=== PATIENT | female | born 1995 | race Two or more races ===

== ENCOUNTER 2019-03-03 03:46 | Observation (INO) | payer MEDICAID, OTHER ==
[2019-03-03] MEDS ORDERED: Sodium Chloride 0.9% 1,000 ML IV ONE (03:49)
[2019-03-03] MEDS ORDERED: Ondansetron 4 MG/2 ML SDV IVPUSH ONE (03:50)
--- NOTE | 2019-03-03 03:56 | EDM.PDOC ---
ED HPI GENERAL MEDICAL PROBLEM - General Chief Complaint: Abdominal Pain Stated Complaint: SEVERE ABDOMINAL PAIN, BLOATING Time Seen by Provider: 03/03/19 03:49 - History of Present Illness INITIAL COMMENTS - FREE TEXT/NARRATIVE: HISTORY AND PHYSICAL: History of present illness: Patient's 23-year-old female with history of gastritis who presents with a concern of abdominal pain nausea and vomiting she also is being evaluated for gallbladder was told that she has a hyperfunctioning gallbladder and had an ejection fraction of approximately 95%. There is no fever chills she denies no urinary symptoms no chest pain shortness breath or other complaints Review of systems: As per history of present illness and below otherwise all systems reviewed and negative. Past medical history: As per history of present illness and as reviewed below otherwise noncontributory. Surgical history: As per history of present illness and as reviewed below otherwise noncontributory. Social history: No reported history of drug or alcohol abuse. Family history: As per history of present illness and as reviewed below otherwise noncontributory. Physical exam: HEENT: Atraumatic, normocephalic, pupils reactive, negative for conjunctival pallor or scleral icterus, mucous membranes dry, throat clear, neck supple, nontender, trachea midline. Lungs: Clear to auscultation, breath sounds equal bilaterally, chest nontender. Heart: S1S2, regular, negative for clicks, rubs, or JVD. Abdomen: Soft, nondistended, nontender. Negative for masses or hepatosplenomegaly. Negative for costovertebral tenderness. Pelvis: Stable nontender. Genitourinary: Deferred. Rectal: Deferred. Extremities: Atraumatic, negative for cords or calf pain. Neurovascular unremarkable. Neuro: Awake, alert, oriented. Cranial nerves II through XII unremarkable. Cerebellum unremarkable. Motor and sensory unremarkable throughout. Exam nonfocal. Diagnostics: CBC CMP lipase UA hCG acute abdominal series with chest x-ray Therapeutics: Saline 1 L bolus Zofran 4 mg IV Impression: #1 abdominal pain #2 vomiting #3 history of gastritis Definitive disposition and diagnosis as appropriate pending reevaluation and review of above. - Related Data Allergies Allergy/AdvReac Type Severity Reaction Status Date / Time No Known Allergies Allergy Verified 03/03/19 03:57 Home Meds: Home Meds Escitalopram Oxalate [Lexapro] 25 mg PO DAILY 12/26/18 [History] Lisdexamfetamine Dimesylate [Vyvanse] 50 mg PO DAILY 12/26/18 [History] buPROPion HCl [Wellbutrin Xl] 300 mg PO DAILY 12/26/18 [History] Sucralfate 1 gm PO QIDACANDBED 30 Days #120 tablet 01/11/19 [Rx] Ampicillin [Principen] 0 mg PO QID 03/03/19 [History] metroNIDAZOLE [Metronidazole] 0 mg PO QID 03/03/19 [History] Past Medical History HEENT History: Reports: Other (See Below) Other HEENT History: wears glasses Cardiovascular History: Reports: None Respiratory History: Reports: Asthma Gastrointestinal History: Reports: None Genitourinary History: Reports: None 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 Musculoskeletal History: Reports: None Neurological History: Reports: None Psychiatric History: Reports: Anxiety, Depression Endocrine/Metabolic History: Reports: None Hematologic History: Reports: Anemia Immunologic History: Reports: None Oncologic (Cancer) History: Reports: None Dermatologic History: Reports: None - Infectious Disease History Infectious Disease History: Reports: Chicken Pox - Past Surgical History Head Surgeries/Procedures: Reports: None HEENT Surgical History: Reports: Naso-Sinus Surgery, Tonsillectomy ED ROS GENERAL - Review of Systems Review Of Systems: Comprehensive ROS is negative, except as noted in HPI. ED EXAM, GENERAL - Physical Exam Exam: See Below (See dictation) Course - Vital Signs Last Recorded V/S: Last Vital Signs Temp 36.2 C 03/03/19 06:21 Pulse 61 03/03/19 06:21 Resp 18 03/03/19 06:21 BP 123/82 03/03/19 06:21 Pulse Ox 98 03/03/19 06:21 - Orders/Labs/Meds Orders: Active Orders 24 hr Category Date Time Status CULTURE URINE [RM] Stat Lab 03/03/19 04:00 Received Labs: Laboratory Tests 03/03/19 03/03/19 03/03/19 Range/Units 03:58 03:58 03:58 WBC 6.11 (4.0-11.0) K/uL RBC 4.44 (4.30-5.90) M/uL Hgb 11.1 L (12.0-16.0) g/dL Hct 34.7 L (36.0-46.0) % MCV 78.2 L (80.0-98.0) fL MCH 25.0 L (27.0-32.0) pg MCHC 32.0 (31.0-37.0) g/dL RDW Std Deviation 46.7 (28.0-62.0) fl RDW Coeff of Karolina 16 H (11.0-15.0) % Plt Count 351 (150-400) K/uL MPV 10.30 (7.40-12.00) fL Neut % (Auto) 63.8 (48.0-80.0) % Lymph % (Auto) 24.1 (16.0-40.0) % [place] % (Auto) 8.0 (0.0-15.0) % Eos % (Auto) 3.4 (0.0-7.0) % Baso % (Auto) 0.7 (0.0-1.5) % Neut # (Auto) 3.9 (1.4-5.7) K/uL Lymph # (Auto) 1.5 (0.6-2.4) K/uL [place] # (Auto) 0.5 (0.0-0.8) K/uL Eos # (Auto) 0.2 (0.0-0.7) K/uL Baso # (Auto) 0.0 (0.0-0.1) K/uL Nucleated RBC % 0.0 /100WBC Nucleated RBCs # 0 K/uL Sodium 138 (136-145) mmol/L Potassium 3.1 L (3.5-5.1) mmol/L Chloride 100 (98-107) mmol/L Carbon Dioxide 27.5 (21.0-32.0) mmol/L BUN 13 (7.0-18.0) mg/dL Creatinine 0.7 (0.6-1.0) mg/dL Est Cr Clr Drug Dosing 110.55 mL/min Estimated GFR (MDRD) > 60.0 ml/min Glucose 111 H (74-106) mg/dL Calcium 8.8 (8.5-10.1) mg/dL Total Bilirubin 1.3 H (0.2-1.0) mg/dL AST 901 H (15-37) IU/L ALT 1554 H (14-63) IU/L Alkaline Phosphatase 213 H (46-116) U/L Total Protein 7.9 (6.4-8.2) g/dL Albumin 4.1 (3.4-5.0) g/dL Globulin 3.8 (2.6-4.0) g/dL Albumin/Globulin Ratio 1.1 (0.9-1.6) Lipase 74 (73-393) U/L HCG, Qual NEGATIVE (NEG) Urine Color Urine Appearance Urine pH (5.0-8.0) Ur Specific [place] (1.001-1.035) Urine Protein (NEGATIVE) mg/dL Urine Glucose (UA) (NEGATIVE) mg/dL Urine Ketones (NEGATIVE) mg/dL Urine Occult Blood (NEGATIVE) Urine Nitrite (NEGATIVE) Urine Bilirubin (NEGATIVE) Urine Urobilinogen (<2.0) EU/dL Ur Leukocyte Esterase (NEGATIVE) Urine RBC (0-2/HPF) Urine WBC (0-5/HPF) Ur Epithelial Cells (NONE-FEW) Urine Bacteria (NEGATIVE) Urine Mucus (NONE-MOD) 03/03/19 Range/Units 04:00 WBC (4.0-11.0) K/uL RBC (4.30-5.90) M/uL Hgb (12.0-16.0) g/dL Hct (36.0-46.0) % MCV (80.0-98.0) fL MCH (27.0-32.0) pg MCHC (31.0-37.0) g/dL RDW Std Deviation (28.0-62.0) fl RDW Coeff of Karolina (11.0-15.0) % Plt Count (150-400) K/uL MPV (7.40-12.00) fL Neut % (Auto) (48.0-80.0) % Lymph % (Auto) (16.0-40.0) % [place] % (Auto) (0.0-15.0) % Eos % (Auto) (0.0-7.0) % Baso % (Auto) (0.0-1.5) % Neut # (Auto) (1.4-5.7) K/uL Lymph # (Auto) (0.6-2.4) K/uL [place] # (Auto) (0.0-0.8) K/uL Eos # (Auto) (0.0-0.7) K/uL Baso # (Auto) (0.0-0.1) K/uL Nucleated RBC % /100WBC Nucleated RBCs # K/uL Sodium (136-145) mmol/L Potassium (3.5-5.1) mmol/L Chloride (98-107) mmol/L Carbon Dioxide (21.0-32.0) mmol/L BUN (7.0-18.0) mg/dL Creatinine (0.6-1.0) mg/dL Est Cr Clr Drug Dosing mL/min Estimated GFR (MDRD) ml/min Glucose (74-106) mg/dL Calcium (8.5-10.1) mg/dL Total Bilirubin (0.2-1.0) mg/dL AST (15-37) IU/L ALT (14-63) IU/L Alkaline Phosphatase (46-116) U/L Total Protein (6.4-8.2) g/dL Albumin (3.4-5.0) g/dL Globulin (2.6-4.0) g/dL Albumin/Globulin Ratio (0.9-1.6) Lipase (73-393) U/L HCG, Qual (NEG) Urine Color DARK YELLOW Urine Appearance SLT CLOUDY Urine pH 8.5 H (5.0-8.0) Ur Specific [place] 1.015 (1.001-1.035) Urine Protein 30 H (NEGATIVE) mg/dL Urine Glucose (UA) NEGATIVE (NEGATIVE) mg/dL Urine Ketones NEGATIVE (NEGATIVE) mg/dL Urine Occult Blood LARGE H (NEGATIVE) Urine Nitrite NEGATIVE (NEGATIVE) Urine Bilirubin MODERATE H (NEGATIVE) Urine Urobilinogen 2.0 H (<2.0) EU/dL Ur Leukocyte Esterase TRACE H (NEGATIVE) Urine RBC 52-60 (0-2/HPF) Urine WBC 2-5 (0-5/HPF) Ur Epithelial Cells RARE (NONE-FEW) Urine Bacteria FEW (NEGATIVE) Urine Mucus LIGHT (NONE-MOD) Meds: Medications Discontinued Medications Generic Name Dose Route Start Last Admin Trade Name Freq PRN Reason Stop Dose Admin Sodium Chloride 1,000 mls @ 999 mls/hr 03/03/19 03:49 03/03/19 04:00 Normal Saline IV 03/03/19 04:49 999 mls/hr STAT ONE Administration Ketorolac Tromethamine 30 mg 03/03/19 05:43 03/03/19 05:48 Toradol IVPUSH 03/03/19 05:44 30 mg ONETIME ONE Administration Ondansetron HCl 4 mg 03/03/19 03:50 03/03/19 04:01 Zofran IVPUSH 03/03/19 03:51 4 mg ONETIME ONE Administration Departure - Departure Time of Disposition: 08:17 Disposition: Refer to Observation Condition: Good Clinical Impression: Abdominal pain, Elevated liver function tests - Discharge Information Forms: ED Department Discharge - My Orders Last 24 Hours: My Active Orders 03/03/19 04:00 CULTURE URINE [RM] Stat - Assessment/Plan Last 24 Hours: My Active Orders 03/03/19 04:00 CULTURE URINE [RM] Stat
[2019-03-03 04:35] LABS: BLOOD UREA NITROGEN,BUN 13 mg/dL (7.0-18.0); CARBON DIOXIDE,CO2 27.5 mmol/L (21.0-32.0); CHLORIDE,CL 100 mmol/L (98-107); GLUCOSE RANDOM 111 mg/dL (74-106); LIPASE 74 U/L (73-393); POTASSIUM,K 3.1 mmol/L (3.5-5.1); SODIUM,NA 138 mmol/L (136-145)
--- NOTE | 2019-03-03 05:05 | CR ---
Indication: Abdominal pain Technique: Frontal view chest and KUB 2 view Comparison: None Findings/Impression: : Soft tissues: No suspicious calcifications to suggest kidney or ureteral stones. No sign of free air. No sign of soft tissue mass. Bowel: Large amount of feces in the colon. Correlate with symptoms of constipation. Bones: Unremarkable for age. Dictated by Lee Ann Will MD @ Mar 03 2019 5:03AM Signed by Dr. Lee Ann Will @ Mar 03 2019 5:03AM
[2019-03-03] MEDS ORDERED: Ketorolac 30 MG/ML SDV IVPUSH ONE (05:43)
--- NOTE | 2019-03-03 07:17 | US ---
INDICATION: Epigastric abdominal pain. Nausea and vomiting. TECHNIQUE: Right upper quadrant ultrasound. COMPARISON: December 26, 2018. FINDINGS: Again noted is a distended gallbladder without stones. The extrahepatic common bile duct is dilated measuring up to 14 mm previously 7 mm. There appear to be a few dilated intrahepatic ducts. Reportedly there is a positive sonographic March`s sign. Clinical and laboratory correlation are recommended. Acalculous cholecystitis could not be excluded. Consider a HIDA scan for further evaluation. No intrahepatic mass. The right kidney is negative for obstruction. It measures 10.7 cm in length. The visualized pancreas is unremarkable. No right upper quadrant ascites. IMPRESSION: 1. Dilated extrahepatic common bile duct up to 14 mm previously 7 mm. Few intrahepatic biliary ducts appear dilated. 2. Mildly distended gallbladder without stones or sludge. Reportedly there is a true sonographic March`s sign. Clinical and laboratory correlation recommended. Acalculous cholecystitis could not be excluded. Consider a HIDA scan for further evaluation. Dictated by Chester Vyas MD @ Mar 03 2019 7:00AM Signed by Dr. Chester Vyas @ Mar 03 2019 7:16AM
[2019-03-03] MEDS ORDERED: Ondansetron 4 MG/2 ML SDV IVPUSH PRN (08:20)
[2019-03-03] MEDS ORDERED: Lactated Ringers 1,000 ML IV SCH (08:30)
[2019-03-03] MEDS ORDERED: Ketorolac 15 MG/ML SDV IVPUSH PRN (09:26)
--- NOTE | 2019-03-03 09:32 | PCM.HP.2 ---
H&P History of Present Illness - General Date of Service: 03/03/19 Admit Problem/Dx: Admission Diagnosis/Problem Admission Diagnosis/Problem Right upper quadrant pain Source of Information: Patient History Limitations: Reports: No Limitations - History of Present Illness Initial Comments - Free Text/Narative: Patient is a 23-year-old female presented to the emergency room today with a 4 day history of epigastric and right upper quadrant pain as well as pain into the back. This has been associated with nausea and vomiting but no fever or chills. No change in bowel habits. She does note fatty food intolerance. Of note too is that she was treated for Helicobacter pylori related gastritis in December of this year. She also underwent biliary tract workup including both ultrasound and hepatobiliary imaging. She was found to have a 95% ejection fraction. No stones were noted on ultrasound. Symptom Onset Date: 02/28/19 Duration of Symptoms: Reports: Day(s):, Chronic Location: Reports: Abdomen Quality: Reports: Ache, Pressure, Same as Previous Episode Severity: Moderate Improves with: Reports: Rest Worsens with: Reports: Eating, Movement Context: Reports: Sick Contact Associated Symptoms: Reports: Loss of Appetite, Nausea/Vomiting. Denies: Fever/ Chills abdomen Pain Score (Numeric/FACES): 5 - Related Data Allergies/Adverse Reactions: Allergies Allergy/AdvReac Type Severity Reaction Status Date / Time No Known Allergies Allergy Verified 03/03/19 03:57 Home Medications: Home Meds Escitalopram Oxalate [Lexapro] 25 mg PO DAILY 12/26/18 [History] Lisdexamfetamine Dimesylate [Vyvanse] 50 mg PO DAILY 12/26/18 [History] buPROPion HCl [Wellbutrin Xl] 300 mg PO DAILY 12/26/18 [History] Sucralfate 1 gm PO QIDACANDBED 30 Days #120 tablet 01/11/19 [Rx] Ampicillin [Principen] 0 mg PO QID 03/03/19 [History] metroNIDAZOLE [Metronidazole] 0 mg PO QID 03/03/19 [History] Past Medical History HEENT History: Reports: Other (See Below) Other HEENT History: wears glasses Cardiovascular History: Reports: None Respiratory History: Reports: Asthma Gastrointestinal History: Reports: None Genitourinary History: Reports: None 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 Musculoskeletal History: Reports: None Neurological History: Reports: None Psychiatric History: Reports: Anxiety, Depression Endocrine/Metabolic History: Reports: None Hematologic History: Reports: Anemia Immunologic History: Reports: None Oncologic (Cancer) History: Reports: None Dermatologic History: Reports: None - Infectious Disease History Infectious Disease History: Reports: Chicken Pox - Past Surgical History Head Surgeries/Procedures: Reports: None HEENT Surgical History: Reports: Naso-Sinus Surgery, Tonsillectomy Social & Family History - Family History Family Medical History: Noncontributory - Tobacco Use Smoking Status *Q: Never Smoker - Recreational Drug Use Recreational Drug Use: No H&P Review of Systems - Review of Systems: Review Of Systems: See Below General: Reports: Decreased Appetite. Denies: Fever, Chills, Diaphoresis HEENT: Reports: No Symptoms Pulmonary: Denies: Shortness of Breath, Wheezing Cardiovascular: Denies: Chest Pain, Palpitations Gastrointestinal: Reports: Abdominal Pain, Anorexia, Decreased Appetite, Nausea , Vomiting. Denies: Black Stool, Bloody Stool, Constipation, Diarrhea Genitourinary: Denies: Dysuria, Frequency, Burning, Pain, Urgency Musculoskeletal: Reports: Back Pain. Denies: Neck Pain, Shoulder Pain, Arm Pain Skin: Denies: Cyanosis, Jaundice, Mottled, Pallor, Diaphoresis Psychiatric: Denies: Confusion, Depression, Anxiety Neurological: Reports: No Symptoms Hematologic/Lymphatic: Reports: No Symptoms Immunologic: Reports: No Symptoms Exam - Exam Exam: See Below - Vital Signs Vital Signs: Last Vital Signs Temp 97.1 F 03/03/19 06:21 Pulse 76 03/03/19 08:18 Resp 18 03/03/19 08:18 BP 121/83 03/03/19 08:18 Pulse Ox 98 03/03/19 08:18 Weight: 130 lb 1.164 oz - Exam Quality Assessment: No: Supplemental Oxygen, Central Line/PICC, Urinary Catheter General: Alert, Oriented, Cooperative, Mild Distress. No: Sedated, Lethargic, Obtunded HEENT: Conjunctiva Clear, Nares Patent, Pupils Equal, Pupils Reactive. No: Scleral Icterus Neck: Supple, Trachea Midline Lungs: Clear to Auscultation, Normal Respiratory Effort. No: Wheezing Cardiovascular: Regular Rate, Regular Rhythm. No: Tachycardia, Systolic Murmur , Diastolic Murmur GI/Abdominal Exam: Normal Bowel Sounds, Soft, Non-Tender, No Distention, No Mass , Other (Negative [place] sign on my exam. Had had one dose of Toradol). No: Guarding, Rigid, Rebound, Hernia, Mass (Female) Exam: Deferred Rectal (Female) Exam: Deferred Back Exam: Normal Inspection Extremities: Normal Inspection, Normal Range of Motion Peripheral Pulses: 4+: Posterior Tibial (L), Posterior Tibial (R), Dorsalis Pedis (L), Dorsalis Pedis (R) Skin: Warm, Dry, Intact Neurological: Cranial Nerves Intact, Reflexes Equal Bilateral Psychiatric: Alert, Normal Affect, Normal Mood - Patient Data Lab Results Last 24 hrs: Laboratory Results - last 24 hr 03/03/19 03/03/19 03/03/19 Range/Units 03:58 03:58 03:58 WBC 6.11 (4.0-11.0) K/uL RBC 4.44 (4.30-5.90) M/uL Hgb 11.1 L (12.0-16.0) g/dL Hct 34.7 L (36.0-46.0) % MCV 78.2 L (80.0-98.0) fL MCH 25.0 L (27.0-32.0) pg MCHC 32.0 (31.0-37.0) g/dL RDW Std Deviation 46.7 (28.0-62.0) fl RDW Coeff of Karolina 16 H (11.0-15.0) % Plt Count 351 (150-400) K/uL MPV 10.30 (7.40-12.00) fL Neut % (Auto) 63.8 (48.0-80.0) % Lymph % (Auto) 24.1 (16.0-40.0) % [place] % (Auto) 8.0 (0.0-15.0) % Eos % (Auto) 3.4 (0.0-7.0) % Baso % (Auto) 0.7 (0.0-1.5) % Neut # (Auto) 3.9 (1.4-5.7) K/uL Lymph # (Auto) 1.5 (0.6-2.4) K/uL [place] # (Auto) 0.5 (0.0-0.8) K/uL Eos # (Auto) 0.2 (0.0-0.7) K/uL Baso # (Auto) 0.0 (0.0-0.1) K/uL Nucleated RBC % 0.0 /100WBC Nucleated RBCs # 0 K/uL Sodium 138 (136-145) mmol/L Potassium 3.1 L (3.5-5.1) mmol/L Chloride 100 (98-107) mmol/L Carbon Dioxide 27.5 (21.0-32.0) mmol/L BUN 13 (7.0-18.0) mg/dL Creatinine 0.7 (0.6-1.0) mg/dL Est Cr Clr Drug Dosing 110.55 mL/min Estimated GFR (MDRD) > 60.0 ml/min Glucose 111 H (74-106) mg/dL Calcium 8.8 (8.5-10.1) mg/dL Total Bilirubin 1.3 H (0.2-1.0) mg/dL AST 901 H (15-37) IU/L ALT 1554 H (14-63) IU/L Alkaline Phosphatase 213 H (46-116) U/L Total Protein 7.9 (6.4-8.2) g/dL Albumin 4.1 (3.4-5.0) g/dL Globulin 3.8 (2.6-4.0) g/dL Albumin/Globulin Ratio 1.1 (0.9-1.6) Lipase 74 (73-393) U/L HCG, Qual NEGATIVE (NEG) Urine Color Urine Appearance Urine pH (5.0-8.0) Ur Specific [place] (1.001-1.035) Urine Protein (NEGATIVE) mg/dL Urine Glucose (UA) (NEGATIVE) mg/dL Urine Ketones (NEGATIVE) mg/dL Urine Occult Blood (NEGATIVE) Urine Nitrite (NEGATIVE) Urine Bilirubin (NEGATIVE) Urine Urobilinogen (<2.0) EU/dL Ur Leukocyte Esterase (NEGATIVE) Urine RBC (0-2/HPF) Urine WBC (0-5/HPF) Ur Epithelial Cells (NONE-FEW) Urine Bacteria (NEGATIVE) Urine Mucus (NONE-MOD) 03/03/19 Range/Units 04:00 WBC (4.0-11.0) K/uL RBC (4.30-5.90) M/uL Hgb (12.0-16.0) g/dL Hct (36.0-46.0) % MCV (80.0-98.0) fL MCH (27.0-32.0) pg MCHC (31.0-37.0) g/dL RDW Std Deviation (28.0-62.0) fl RDW Coeff of Karolina (11.0-15.0) % Plt Count (150-400) K/uL MPV (7.40-12.00) fL Neut % (Auto) (48.0-80.0) % Lymph % (Auto) (16.0-40.0) % [place] % (Auto) (0.0-15.0) % Eos % (Auto) (0.0-7.0) % Baso % (Auto) (0.0-1.5) % Neut # (Auto) (1.4-5.7) K/uL Lymph # (Auto) (0.6-2.4) K/uL [place] # (Auto) (0.0-0.8) K/uL Eos # (Auto) (0.0-0.7) K/uL Baso # (Auto) (0.0-0.1) K/uL Nucleated RBC % /100WBC Nucleated RBCs # K/uL Sodium (136-145) mmol/L Potassium (3.5-5.1) mmol/L Chloride (98-107) mmol/L Carbon Dioxide (21.0-32.0) mmol/L BUN (7.0-18.0) mg/dL Creatinine (0.6-1.0) mg/dL Est Cr Clr Drug Dosing mL/min Estimated GFR (MDRD) ml/min Glucose (74-106) mg/dL Calcium (8.5-10.1) mg/dL Total Bilirubin (0.2-1.0) mg/dL AST (15-37) IU/L ALT (14-63) IU/L Alkaline Phosphatase (46-116) U/L Total Protein (6.4-8.2) g/dL Albumin (3.4-5.0) g/dL Globulin (2.6-4.0) g/dL Albumin/Globulin Ratio (0.9-1.6) Lipase (73-393) U/L HCG, Qual (NEG) Urine Color DARK YELLOW Urine Appearance SLT CLOUDY Urine pH 8.5 H (5.0-8.0) Ur Specific [place] 1.015 (1.001-1.035) Urine Protein 30 H (NEGATIVE) mg/dL Urine Glucose (UA) NEGATIVE (NEGATIVE) mg/dL Urine Ketones NEGATIVE (NEGATIVE) mg/dL Urine Occult Blood LARGE H (NEGATIVE) Urine Nitrite NEGATIVE (NEGATIVE) Urine Bilirubin MODERATE H (NEGATIVE) Urine Urobilinogen 2.0 H (<2.0) EU/dL Ur Leukocyte Esterase TRACE H (NEGATIVE) Urine RBC 52-60 (0-2/HPF) Urine WBC 2-5 (0-5/HPF) Ur Epithelial Cells RARE (NONE-FEW) Urine Bacteria FEW (NEGATIVE) Urine Mucus LIGHT (NONE-MOD) Result Diagrams: 03/03/19 03:58 03/03/19 03:58 - Problem List (1) Abdominal pain SNOMED Code(s): 10969340 ICD Code: R10.9 - UNSPECIFIED ABDOMINAL PAIN Status: Acute Priority: High Current Visit: Yes Qualifiers: Abdominal location: right upper quadrant Qualified Code(s): R10.11 - Right upper quadrant pain (2) Elevated liver function tests SNOMED Code(s): 281507389, 621112000 ICD Code: R94.5 - ABNORMAL RESULTS OF LIVER FUNCTION STUDIES Status: Acute Priority: High Current Visit: Yes Problem List Initiated/Reviewed/Updated: Yes Orders Last 24hrs: Active Orders 24 hr Category Date Time Status Patient Status [ADT] Routine ADT 03/03/19 08:18 Active Notify Provider Consults [RC] ASDIRECTED Care 03/03/19 08:22 Active Up ad Rachelle [RC] ASDIRECTED Care 03/03/19 08:18 Active Vital Signs [RC] PER UNIT ROUTINE Care 03/03/19 08:18 Active Consult to Physician [CONS] Stat Cons 03/03/19 08:20 Active Nothing Per Oral Diet [DIET] Diet 03/03/19 Breakfast Active Abdomen wo Cont [MR] Stat Exams 03/03/19 08:13 Ordered CULTURE URINE [RM] Stat Lab 03/03/19 04:00 Received Ketorolac [Toradol] Med 03/03/19 09:26 Ordered 15 mg IVPUSH Q6H PRN Lactated Ringers [Ringers, Lactated] 1,000 ml Med 03/03/19 08:30 Active IV ASDIRECTED Ondansetron [Zofran] Med 03/03/19 08:20 Active 4 mg IVPUSH Q6H PRN Resuscitation Status Routine Resus Stat 03/03/19 08:18 Ordered Medication Orders Lactated Ringer's (Ringers, Lactated) 1,000 mls @ 125 mls/hr IV ASDIRECTED SILVIANO Last Admin: 03/03/19 08:28 Dose: 125 mls/hr Ondansetron HCl (Zofran) 4 mg IVPUSH Q6H PRN PRN Reason: Nausea/Vomiting Assessment/Plan Comment:: Common bile duct dilated to 14mm with elevated transaminases and slight hyperbilirubinemia. HIDA scan this fall showed an ejection fraction of 95%. Was recently treated for H. pylori gastritis. Given the LFT picture and dilated CBD will get an MRCP today. Hospitalist consult requested. Pending outcome of the MRCP she may need outpatient GI consultation. - Mortality Measure Prognosis:: Good
[2019-03-03] MEDS ORDERED: Potassium Chloride Riders 40 MEQ in Premix Bag 1 BAG IV ONE (11:56)
--- NOTE | 2019-03-03 12:29 | PCM.CONS ---
H&P History of Present Illness - General Date of Service: 03/03/19 Admit Problem/Dx: Admission Diagnosis/Problem Admission Diagnosis/Problem Right upper quadrant pain Source of Information: Patient, Family History Limitations: Reports: No Limitations - History of Present Illness Initial Comments - Free Text/Narative: 23-year-old female admitted for right upper quadrant abdominal pain. She has a PMH of h.pylori gastritis, asthma, anxiety and depression. Patient reports that she has had RUQ abdominal pain, epigastric pain as well as back pain that started 2 days ago. She has also had nausea, vomiting and chills. She denied having any fevers, shortness of breath, pain when urinating, blood in urine, blood in her stool or diarrhea. Patient reports being treat for h.pylori approximately 1 month ago with antibiotics. Denies any history of kidney stones or any abdominal surgery. She reports taking Tylenol every 4-6 hours over the past 2 days but reports she has not been going over the labelled dose instructions. She has also been taking PO ketorolac for pain as well as z-quil at night time approximately 3x per week. Patient also reports drinking alcohol socially every 2-3 months. The last time she drank she reports drinking 1 bottle of wine which was approximately 2 months ago. Abdominal ultrasound showed CBD dilation to 14 mm. No stones were noted in the gallbladder. Also noted to have elevated LFT's and elevated bilirubin. MRCP currently pending. Per general surgery Dr. Holm, patient had HIDA scan done a few months ago which showed EF of 95%. Medicine service consulted for further recommendations. abdomen Pain Score (Numeric/FACES): 5 - Related Data Allergies/Adverse Reactions: Allergies Allergy/AdvReac Type Severity Reaction Status Date / Time No Known Allergies Allergy Verified 03/03/19 03:57 Home Medications: Home Meds Escitalopram Oxalate [Lexapro] 25 mg PO DAILY 12/26/18 [History] Lisdexamfetamine Dimesylate [Vyvanse] 50 mg PO DAILY 12/26/18 [History] buPROPion HCl [Wellbutrin Xl] 300 mg PO DAILY 12/26/18 [History] Sucralfate 1 gm PO QIDACANDBED 30 Days #120 tablet 01/11/19 [Rx] Ampicillin [Principen] 0 mg PO QID 03/03/19 [History] metroNIDAZOLE [Metronidazole] 0 mg PO QID 03/03/19 [History] Past Medical History HEENT History: Reports: Other (See Below) Other HEENT History: wears glasses Cardiovascular History: Reports: None Respiratory History: Reports: Asthma Gastrointestinal History: Reports: None Genitourinary History: Reports: None [employer] History: Reports: None Musculoskeletal History: Reports: None Neurological History: Reports: None Psychiatric History: Reports: Anxiety, Depression Endocrine/Metabolic History: Reports: None Hematologic History: Reports: Anemia Immunologic History: Reports: None Oncologic (Cancer) History: Reports: None Dermatologic History: Reports: None - Infectious Disease History Infectious Disease History: Reports: Chicken Pox - Past Surgical History Head Surgeries/Procedures: Reports: None HEENT Surgical History: Reports: Naso-Sinus Surgery, Tonsillectomy Social & Family History - Family History Family Medical History: Noncontributory - Tobacco Use Smoking Status *Q: Never Smoker - Caffeine Use Caffeine Use: Reports: Tea - Recreational Drug Use Recreational Drug Use: No H&P Review of Systems - Review of Systems: Review Of Systems: Comprehensive ROS is negative, except as noted in HPI. Exam - Exam Exam: See Below - Vital Signs Vital Signs: Last Vital Signs Temp 97.7 F 03/03/19 10:29 Pulse 66 03/03/19 10:29 Resp 16 03/03/19 10:29 BP 118/77 03/03/19 10:29 Pulse Ox 98 03/03/19 10:29 Weight: 131 lb 8 oz - Exam General: Alert, Oriented, Cooperative, Other (NAD) HEENT: Conjunctiva Clear, EOMI, Hearing Intact Neck: Supple, Trachea Midline Lungs: Clear to Auscultation, Normal Respiratory Effort Cardiovascular: Regular Rate, Regular Rhythm GI/Abdominal Exam: Normal Bowel Sounds, Soft, Non-Tender, No Distention, Other ( No CVA tenderness bilaterally. No flanks tenderness bilaterally.) Extremities: Normal Inspection, No Pedal Edema Peripheral Pulses: 2+: Posterior Tibial (L), Posterior Tibial (R) Skin: Warm, Dry, Intact Neurological: Cranial Nerves Intact, Strength Equal Bilateral Neuro Extensive - Mental Status: Alert, Oriented x3, Normal Mood/Affect - Patient Data Lab Results Last 24 hrs: Laboratory Results - last 24 hr 03/03/19 03/03/19 03/03/19 Range/Units 03:58 03:58 03:58 WBC 6.11 (4.0-11.0) K/uL RBC 4.44 (4.30-5.90) M/uL Hgb 11.1 L (12.0-16.0) g/dL Hct 34.7 L (36.0-46.0) % MCV 78.2 L (80.0-98.0) fL MCH 25.0 L (27.0-32.0) pg MCHC 32.0 (31.0-37.0) g/dL RDW Std Deviation 46.7 (28.0-62.0) fl RDW Coeff of Karolina 16 H (11.0-15.0) % Plt Count 351 (150-400) K/uL MPV 10.30 (7.40-12.00) fL Neut % (Auto) 63.8 (48.0-80.0) % Lymph % (Auto) 24.1 (16.0-40.0) % Henry % (Auto) 8.0 (0.0-15.0) % Eos % (Auto) 3.4 (0.0-7.0) % Baso % (Auto) 0.7 (0.0-1.5) % Neut # (Auto) 3.9 (1.4-5.7) K/uL Lymph # (Auto) 1.5 (0.6-2.4) K/uL Henry # (Auto) 0.5 (0.0-0.8) K/uL Eos # (Auto) 0.2 (0.0-0.7) K/uL Baso # (Auto) 0.0 (0.0-0.1) K/uL Nucleated RBC % 0.0 /100WBC Nucleated RBCs # 0 K/uL Sodium 138 (136-145) mmol/L Potassium 3.1 L (3.5-5.1) mmol/L Chloride 100 (98-107) mmol/L Carbon Dioxide 27.5 (21.0-32.0) mmol/L BUN 13 (7.0-18.0) mg/dL Creatinine 0.7 (0.6-1.0) mg/dL Est Cr Clr Drug Dosing 110.55 mL/min Estimated GFR (MDRD) > 60.0 ml/min Glucose 111 H (74-106) mg/dL Calcium 8.8 (8.5-10.1) mg/dL Total Bilirubin 1.3 H (0.2-1.0) mg/dL AST 901 H (15-37) IU/L ALT 1554 H (14-63) IU/L Alkaline Phosphatase 213 H (46-116) U/L Total Protein 7.9 (6.4-8.2) g/dL Albumin 4.1 (3.4-5.0) g/dL Globulin 3.8 (2.6-4.0) g/dL Albumin/Globulin Ratio 1.1 (0.9-1.6) Lipase 74 (73-393) U/L HCG, Qual NEGATIVE (NEG) Urine Color Urine Appearance Urine pH (5.0-8.0) Ur Specific [place] (1.001-1.035) Urine Protein (NEGATIVE) mg/dL Urine Glucose (UA) (NEGATIVE) mg/dL Urine Ketones (NEGATIVE) mg/dL Urine Occult Blood (NEGATIVE) Urine Nitrite (NEGATIVE) Urine Bilirubin (NEGATIVE) Urine Urobilinogen (<2.0) EU/dL Ur Leukocyte Esterase (NEGATIVE) Urine RBC (0-2/HPF) Urine WBC (0-5/HPF) Ur Epithelial Cells (NONE-FEW) Urine Bacteria (NEGATIVE) Urine Mucus (NONE-MOD) 03/03/19 Range/Units 04:00 WBC (4.0-11.0) K/uL RBC (4.30-5.90) M/uL Hgb (12.0-16.0) g/dL Hct (36.0-46.0) % MCV (80.0-98.0) fL MCH (27.0-32.0) pg MCHC (31.0-37.0) g/dL RDW Std Deviation (28.0-62.0) fl RDW Coeff of Karolina (11.0-15.0) % Plt Count (150-400) K/uL MPV (7.40-12.00) fL Neut % (Auto) (48.0-80.0) % Lymph % (Auto) (16.0-40.0) % Henry % (Auto) (0.0-15.0) % Eos % (Auto) (0.0-7.0) % Baso % (Auto) (0.0-1.5) % Neut # (Auto) (1.4-5.7) K/uL Lymph # (Auto) (0.6-2.4) K/uL Henry # (Auto) (0.0-0.8) K/uL Eos # (Auto) (0.0-0.7) K/uL Baso # (Auto) (0.0-0.1) K/uL Nucleated RBC % /100WBC Nucleated RBCs # K/uL Sodium (136-145) mmol/L Potassium (3.5-5.1) mmol/L Chloride (98-107) mmol/L Carbon Dioxide (21.0-32.0) mmol/L BUN (7.0-18.0) mg/dL Creatinine (0.6-1.0) mg/dL Est Cr Clr Drug Dosing mL/min Estimated GFR (MDRD) ml/min Glucose (74-106) mg/dL Calcium (8.5-10.1) mg/dL Total Bilirubin (0.2-1.0) mg/dL AST (15-37) IU/L ALT (14-63) IU/L Alkaline Phosphatase (46-116) U/L Total Protein (6.4-8.2) g/dL Albumin (3.4-5.0) g/dL Globulin (2.6-4.0) g/dL Albumin/Globulin Ratio (0.9-1.6) Lipase (73-393) U/L HCG, Qual (NEG) Urine Color DARK YELLOW Urine Appearance SLT CLOUDY Urine pH 8.5 H (5.0-8.0) Ur Specific [place] 1.015 (1.001-1.035) Urine Protein 30 H (NEGATIVE) mg/dL Urine Glucose (UA) NEGATIVE (NEGATIVE) mg/dL Urine Ketones NEGATIVE (NEGATIVE) mg/dL Urine Occult Blood LARGE H (NEGATIVE) Urine Nitrite NEGATIVE (NEGATIVE) Urine Bilirubin MODERATE H (NEGATIVE) Urine Urobilinogen 2.0 H (<2.0) EU/dL Ur Leukocyte Esterase TRACE H (NEGATIVE) Urine RBC 52-60 (0-2/HPF) Urine WBC 2-5 (0-5/HPF) Ur Epithelial Cells RARE (NONE-FEW) Urine Bacteria FEW (NEGATIVE) Urine Mucus LIGHT (NONE-MOD) Result Diagrams: 03/03/19 03:58 03/03/19 03:58 Consult PN Assessment/Plan Procedures: Procedures ASSAY OF LACTIC ACID (12/26/18) ASSAY OF LIPASE (12/26/18) BLOOD CULTURE FOR BACTERIA (12/26/18) COMPLETE CBC W/AUTO DIFF WBC (12/26/18) COMPREHEN METABOLIC PANEL (12/26/18) CT ABD & PELV W/CONTRAST (12/26/18) ECHO EXAM OF ABDOMEN (12/26/18) EGD BIOPSY SINGLE/MULTIPLE (01/11/19) ELECTROCARDIOGRAM TRACING (12/26/18) EMERGENCY DEPT VISIT (12/26/18) HYDRATE IV INFUSION ADD-ON (12/26/18) ROUTINE VENIPUNCTURE (12/26/18) SPECIAL STAINS GROUP 1 (01/11/19) THER/PROPH/DIAG INJ IV PUSH (12/26/18) TISSUE EXAM BY PATHOLOGIST (01/11/19) TX/PRO/DX INJ NEW DRUG ADDON (12/26/18) URINALYSIS AUTO W/O SCOPE (12/26/18) URINE TEST (01/11/19) X-RAY EXAM CHEST 1 VIEW (12/26/18) Problem List Initiated/Reviewed/Updated: Yes My Orders Last 24 Hours: My Active Orders 03/03/19 11:56 Potassium Chloride Riders [KCL 40 MEQ in Water 100 ML] 40 meq Premix Bag 1 bag IV ONETIME Plan: Assessment: 1. Abdominal pain in the setting of #2 and #3. 2. Distended common bile duct. 3. Elevated liver enzymes. 4. Hyperbilirubinemia. 5. Hypokalemia, mild. Plan: 1. For abdominal pain, per general surgery, MRCP pending. Elevated liver enzymes could be secondary to choledocholithiasis. Will also do further work-up by ordering hepatitis panel, INR and tylenol level. Will treat for possible Tylenol overdose with n-acetylcysteine per pharmacy protocol. 2. For hypokalemia, replete with IV KCl 40 mEq x 1. Will monitor.
[2019-03-03] MEDS ORDERED: Acetylcysteine 9,000 MG in Dextrose 5% in Water 200 ML IV SCH ×4 (12:30)
--- NOTE | 2019-03-03 13:58 | MR ---
Indication: Right upper quadrant pain. Elevated LFTs. Dilated common bile duct. Technique: MRI of the abdomen without IV contrast. Comparison: Abdominal ultrasound 03/03/2019 and 12/26/2018. Findings: Gallbladder size is at the upper limits of normal. No wall thickening or pericholecystic edema. No stones are visualized within the gallbladder. Mild dilation of the extrahepatic bile duct which measures 10 mm proximally and tapers to 7 mm distally (series 901, image 47). No intraductal filling defect is identified within the extrahepatic bile duct or cystic duct. Mild central intrahepatic bile duct dilation. Non cirrhotic configuration liver. No hepatic steatosis. The unenhanced spleen, pancreas, kidneys, and adrenal glands are normal in appearance. No hydronephrosis. No pancreatic duct dilation. No bowel dilation, free fluid, or lymphadenopathy in the upper abdomen. Impression: 1. Mild dilation of the extrahepatic bile duct measuring 10 mm proximally and tapering to 7 mm distally. 2. No intraductal filling defect identified within the extrahepatic bile duct or cystic duct. 3. Gallbladder size upper limits of normal without evidence of stones or inflammation. 4. Exam is otherwise unremarkable. Dictated by Alexia Huynh MD @ Mar 03 2019 1:42PM Signed by Dr. Alexia Huynh @ Mar 03 2019 1:56PM
[2019-03-03] MEDS ORDERED: Albuterol/Ipratropium 3.0-0.5 MG/3 ML Neb Soln NEB ONE (17:27)
[2019-03-03] MEDS ORDERED: Albuterol/Ipratropium 3.0-0.5 MG/3 ML Neb Soln NEB PRN (17:27)
[2019-03-03] MEDS ORDERED: diphenhydrAMINE 50 MG/ML SDV IVPUSH STA (17:28)
--- NOTE | 2019-03-03 17:46 | PCM.SN ---
- Free Text/Narrative Note: MRCP shows only mild CBD dilatation at 10 mm. No intraluminal filling defects. This may be more of a hepatitis picture. Hepatitis labs are pending. Patient does not have a surgical situation at this time. Patient will be transferred to Dr. Arias's service and has been accepted by him. Thank you.
[2019-03-03] MEDS ORDERED: ESCITALOPRAM OXALATE PO SCH (18:00)
[2019-03-03] MEDS: buPROPion 150 MG Tab.ER PO SCH (21:10)
[2019-03-03] MEDS: Escitalopram 10 MG Tab PO SCH (21:10)
[2019-03-04 06:26] LABS: BLOOD UREA NITROGEN,BUN 7 mg/dL (7.0-18.0); CARBON DIOXIDE,CO2 25.5 mmol/L (21.0-32.0); CHLORIDE,CL 109 mmol/L (98-107); GLUCOSE RANDOM 90 mg/dL (74-106); POTASSIUM,K 3.7 mmol/L (3.5-5.1); SODIUM,NA 142 mmol/L (136-145)
[2019-03-04] MEDS: Lisdexamfetamine Dimesylate [Vyvanse] 50 MG PO SCH ×2 (07:53→09:52)
[2019-03-04] MEDS: Escitalopram 10 MG Tab PO SCH ×2 (09:50→10:12)
[2019-03-04] MEDS: buPROPion 150 MG Tab.ER PO SCH (09:51)
[2019-03-04 11:44] VITALS: BP 119/70; PULSE 65
--- NOTE | 2019-03-04 15:23 | PCM.DCSUM1 ---
<Mike Frank - Last Filed: 03/04/19 16:01> Discharge Summary - Hospital Course Free Text/Narrative:: 23-year-old female admitted for RUQ abdominal pain, nausea and vomiting. She has a PMH of h.pylori gastritis, asthma and anxiety. On admission, was found to have elevated LFT's and hyperbilirubinemia. Abdominal ultrasound showed common bile duct dilation of 14 mm and no stones in gallbladder. MRCP showed mild dilation of common bile duct (10 mm), no intraductal filling defects in extrahepatic bile duct or cystic duct. Gallbladder size upper limits of normal without evidence of stones or inflammation. Route Sales Representative Dr. uV in [place], [place] was contacted who said that patient likely had passed a gallstone as she is feeling much better the following morning and tolerating oral diet well. Furthermore, her hyperbilirubinemia resolved and LFT's were downtrending. Dr. Vu said that patient is stable for discharge but would require antibiotic treatment with ciprofloxacin and flagyl for at least 10 days. Her LFT 's also need to be rechecked by her PCP in 1 week and if they are noted to be trending upwards, then patient would most likely require a cholecystectomy. Patient discharged in stable condition with 10 day course of cipro and flagyl. - Discharge Data Discharge Date: 03/04/19 Discharge Disposition: Home, Self-Care 01 Condition: Stable - Referral to Home Health Primary Care Physician: PCP None - Patient Summary/Data Consults: Consultations 03/03/19 08:20 Consult to Physician [CONS] Stat - Patient Instructions Diet: Usual Diet as Tolerated Activity: As Tolerated Notify Provider of: Fever, Increased Pain, Swelling and Redness, Drainage, Nausea and/or Vomiting - Discharge Plan *PRESCRIPTION DRUG MONITORING PROGRAM REVIEWED*: Not Applicable *COPY OF PRESCRIPTION DRUG MONITORING REPORT IN PATIENT CY: Not Applicable Prescriptions/Med Rec: Ciprofloxacin [Cipro XR] 500 mg PO BID 10 Days #20 tab.er metroNIDAZOLE [Metronidazole] 500 mg PO Q8H 10 Days #30 tablet Home Medications: Home Meds . [Unable to Verify Home Med List] 11/17/14 [History] Escitalopram Oxalate [Lexapro] 20 mg PO DAILY 12/26/18 [History] Lisdexamfetamine Dimesylate [Vyvanse] 50 mg PO DAILY 12/26/18 [History] buPROPion HCl [Wellbutrin Xl] 300 mg PO DAILY 12/26/18 [History] Sucralfate 1 gm PO QIDACANDBED 30 Days #120 tablet 01/11/19 [Rx] Ciprofloxacin [Cipro XR] 500 mg PO BID 10 Days #20 tab.er 03/04/19 [Rx] metroNIDAZOLE [Metronidazole] 500 mg PO Q8H 10 Days #30 tablet 03/04/19 [Rx] Patient Handouts: Ciprofloxacin extended-release tablets, Metronidazole tablets or capsules Referrals: Markus Holm MD [Physician] - 03/17/19 9:15 am Mike Frank MD [Resident] - 03/09/19 2:30 pm - Discharge Summary/Plan Comment DC Time >30 min.: No - Patient Data Vitals - Most Recent: Last Vital Signs Temp 98.2 F 03/04/19 11:00 Pulse 65 03/04/19 08:48 Resp 18 03/04/19 08:48 BP 119/70 03/04/19 08:48 Pulse Ox 96 03/04/19 08:48 Weight - Most Recent: 59.647 kg I&O - Last 24 hours: Intake & Output 03/04/19 03/04/19 03/04/19 06:59 14:59 22:59 Intake Total 6860 735 4162 Output Total 300 751 Balance 755 307 899 Lab Results - Last 24 hrs: Laboratory Results - last 24 hr 03/04/19 03/04/19 03/04/19 Range/Units 05:42 05:42 08:04 WBC 3.97 L (4.0-11.0) K/uL RBC 4.19 L (4.30-5.90) M/uL Hgb 10.4 L (12.0-16.0) g/dL Hct 32.8 L (36.0-46.0) % MCV 78.3 L (80.0-98.0) fL MCH 24.8 L (27.0-32.0) pg MCHC 31.7 (31.0-37.0) g/dL RDW Std Deviation 47.9 (28.0-62.0) fl RDW Coeff of Karolina 17 H (11.0-15.0) % Plt Count 283 (150-400) K/uL MPV 9.90 (7.40-12.00) fL Neut % (Auto) 33.5 L (48.0-80.0) % Lymph % (Auto) 47.1 H (16.0-40.0) % Baker % (Auto) 13.4 (0.0-15.0) % Eos % (Auto) 5.0 (0.0-7.0) % Baso % (Auto) 1.0 (0.0-1.5) % Neut # (Auto) 1.3 L (1.4-5.7) K/uL Lymph # (Auto) 1.9 (0.6-2.4) K/uL Baker # (Auto) 0.5 (0.0-0.8) K/uL Eos # (Auto) 0.2 (0.0-0.7) K/uL Baso # (Auto) 0.0 (0.0-0.1) K/uL Nucleated RBC % 0.0 /100WBC Nucleated RBCs # 0 K/uL INR 1.10 Sodium 142 (136-145) mmol/L Potassium 3.7 (3.5-5.1) mmol/L Chloride 109 H (98-107) mmol/L Carbon Dioxide 25.5 (21.0-32.0) mmol/L BUN 7 (7.0-18.0) mg/dL Creatinine 0.6 (0.6-1.0) mg/dL Est Cr Clr Drug Dosing 128.98 mL/min Estimated GFR (MDRD) > 60.0 ml/min Glucose 90 (74-106) mg/dL Calcium 8.2 L (8.5-10.1) mg/dL Total Bilirubin 0.5 (0.2-1.0) mg/dL AST 292 H (15-37) IU/L ALT 920 H (14-63) IU/L Alkaline Phosphatase 150 H (46-116) U/L Total Protein 6.5 (6.4-8.2) g/dL Albumin 3.1 L (3.4-5.0) g/dL Globulin 3.4 (2.6-4.0) g/dL Albumin/Globulin Ratio 0.9 (0.9-1.6) Urine Color Urine Appearance Urine pH (5.0-8.0) Ur Specific [place] (1.001-1.035) Urine Protein (NEGATIVE) mg/dL Urine Glucose (UA) (NEGATIVE) mg/dL Urine Ketones (NEGATIVE) mg/dL Urine Occult Blood (NEGATIVE) Urine Nitrite (NEGATIVE) Urine Bilirubin (NEGATIVE) Urine Urobilinogen (<2.0) EU/dL Ur Leukocyte Esterase (NEGATIVE) Urine RBC (0-2/HPF) Urine WBC (0-5/HPF) Ur Epithelial Cells (NONE-FEW) Urine Bacteria (NEGATIVE) 03/04/19 Range/Units 13:15 WBC (4.0-11.0) K/uL RBC (4.30-5.90) M/uL Hgb (12.0-16.0) g/dL Hct (36.0-46.0) % MCV (80.0-98.0) fL MCH (27.0-32.0) pg MCHC (31.0-37.0) g/dL RDW Std Deviation (28.0-62.0) fl RDW Coeff of Karolina (11.0-15.0) % Plt Count (150-400) K/uL MPV (7.40-12.00) fL Neut % (Auto) (48.0-80.0) % Lymph % (Auto) (16.0-40.0) % Baker % (Auto) (0.0-15.0) % Eos % (Auto) (0.0-7.0) % Baso % (Auto) (0.0-1.5) % Neut # (Auto) (1.4-5.7) K/uL Lymph # (Auto) (0.6-2.4) K/uL Baker # (Auto) (0.0-0.8) K/uL Eos # (Auto) (0.0-0.7) K/uL Baso # (Auto) (0.0-0.1) K/uL Nucleated RBC % /100WBC Nucleated RBCs # K/uL INR Sodium (136-145) mmol/L Potassium (3.5-5.1) mmol/L Chloride (98-107) mmol/L Carbon Dioxide (21.0-32.0) mmol/L BUN (7.0-18.0) mg/dL Creatinine (0.6-1.0) mg/dL Est Cr Clr Drug Dosing mL/min Estimated GFR (MDRD) ml/min Glucose (74-106) mg/dL Calcium (8.5-10.1) mg/dL Total Bilirubin (0.2-1.0) mg/dL AST (15-37) IU/L ALT (14-63) IU/L Alkaline Phosphatase (46-116) U/L Total Protein (6.4-8.2) g/dL Albumin (3.4-5.0) g/dL Globulin (2.6-4.0) g/dL Albumin/Globulin Ratio (0.9-1.6) Urine Color YELLOW Urine Appearance CLEAR Urine pH 6.5 (5.0-8.0) Ur Specific [place] <= 1.005 (1.001-1.035) Urine Protein NEGATIVE (NEGATIVE) mg/dL Urine Glucose (UA) NEGATIVE (NEGATIVE) mg/dL Urine Ketones NEGATIVE (NEGATIVE) mg/dL Urine Occult Blood MODERATE H (NEGATIVE) Urine Nitrite NEGATIVE (NEGATIVE) Urine Bilirubin NEGATIVE (NEGATIVE) Urine Urobilinogen 0.2 (<2.0) EU/dL Ur Leukocyte Esterase NEGATIVE (NEGATIVE) Urine RBC 15-20 (0-2/HPF) Urine WBC 0-2 (0-5/HPF) Ur Epithelial Cells OCCASIONAL (NONE-FEW) Urine Bacteria NOT SEEN (NEGATIVE) LEONOR Results - Last 24 hrs: Microbiology 03/03/19 04:00 Urine Culture - Final Urine, Clean Catch MIXED HATTIE 1,000-10,000 CFU/ML Med Orders - Current: Current Medications Albuterol/Ipratropium (Duoneb 3.0-0.5 Mg/3 Ml) 3 ml NEB Q4H PRN PRN Reason: Shortness of Breath Bupropion HCl (Wellbutrin Xl) 300 mg PO DAILY [facility] Last Admin: 03/04/19 09:51 Dose: 300 mg Escitalopram Oxalate (Lexapro) 20 mg PO DAILY [facility] Last Admin: 03/04/19 10:12 Dose: Not Given Ketorolac Tromethamine (Toradol) 15 mg IVPUSH Q6H PRN PRN Reason: Pain (moderate 4-6) Stop: 03/08/19 09:27 Ondansetron HCl (Zofran) 4 mg IVPUSH Q6H PRN PRN Reason: Nausea/Vomiting Lisdexamfetamine Dimesylate [Vyvanse] 50 Mg 0 each PO DAILY [facility] Last Admin: 03/04/19 09:52 Dose: 50 each Discontinued Medications Albuterol/Ipratropium (Duoneb 3.0-0.5 Mg/3 Ml) 3 ml NEB ONETIME ONE Stop: 03/03/19 17:28 Last Admin: 03/03/19 17:50 Dose: 3 ml Diphenhydramine HCl (Benadryl) 25 mg IVPUSH ONETIME STA Stop: 03/03/19 17:29 Last Admin: 03/03/19 17:53 Dose: 25 mg Sodium Chloride (Normal Saline) 1,000 mls @ 999 mls/hr IV STAT ONE Stop: 03/03/19 04:49 Last Admin: 03/03/19 04:00 Dose: 999 mls/hr Lactated Ringer's (Ringers, Lactated) 1,000 mls @ 125 mls/hr IV ASDIRECTED [facility] Last Admin: 03/03/19 08:28 Dose: 125 mls/hr Potassium Chloride 40 meq/ (Premix) 100 mls @ 25 mls/hr IV ONETIME ONE Stop: 03/03/19 15:55 Last Admin: 03/03/19 14:09 Dose: 25 mls/hr Acetylcysteine 3,000 mg/ (Dextrose/Water) 515 mls @ 85.833 mls/hr IV 03/03/19@ 1330 [facility] Stop: 03/03/19 19:29 Last Admin: 03/03/19 18:51 Dose: 85.833 mls/hr Acetylcysteine 6,000 mg/ (Dextrose/Water) 1,030 mls @ 64.375 mls/hr IV 03/03/19 @1730 [facility] Stop: 03/04/19 09:29 Last Admin: 03/04/19 01:38 Dose: 64.375 mls/hr Acetylcysteine 9,000 mg/ (Dextrose/Water) 245 mls @ 245 mls/hr IV 03/03/19@ 1230 [facility] Stop: 03/03/19 16:00 Last Admin: 03/03/19 15:23 Dose: 245 mls/hr Ketorolac Tromethamine (Toradol) 30 mg IVPUSH ONETIME ONE Stop: 03/03/19 05:44 Last Admin: 03/03/19 05:48 Dose: 30 mg Non-Formulary Medication (Escitalopram Oxalate) 25 mg PO DAILY [facility] Last Admin: 03/04/19 03:10 Dose: Not Given Ondansetron HCl (Zofran) 4 mg IVPUSH ONETIME ONE Stop: 03/03/19 03:51 Last Admin: 03/03/19 04:01 Dose: 4 mg <John Arias - Last Filed: 03/05/19 18:45> Discharge Summary - Referral to Home Health Primary Care Physician: PCP None - Patient Summary/Data Consults: Consultations 03/03/19 08:20 Consult to Physician [CONS] Stat - Patient Data Vitals - Most Recent: Last Vital Signs Temp 36.8 C 03/04/19 11:00 Pulse 65 03/04/19 08:48 Resp 18 03/04/19 08:48 BP 119/70 03/04/19 08:48 Pulse Ox 96 03/04/19 08:48 Lab Results - Last 24 hrs: Laboratory Results - last 24 hr 03/03/19 Range/Units 12:14 Hepatitis A IgM Ab Negative (Negative) Hep Bs Antigen Negative (Negative) Hep B Core IgM Ab Negative (Negative) Hepatitis C Antibody <0.1 (0.0-0.9) s/co ratio Med Orders - Current: Current Medications Discontinued Medications Albuterol/Ipratropium (Duoneb 3.0-0.5 Mg/3 Ml) 3 ml NEB ONETIME ONE Stop: 03/03/19 17:28 Last Admin: 03/03/19 17:50 Dose: 3 ml Albuterol/Ipratropium (Duoneb 3.0-0.5 Mg/3 Ml) 3 ml NEB Q4H PRN PRN Reason: Shortness of Breath Bupropion HCl (Wellbutrin Xl) 300 mg PO DAILY [facility] Last Admin: 03/04/19 09:51 Dose: 300 mg Diphenhydramine HCl (Benadryl) 25 mg IVPUSH ONETIME STA Stop: 03/03/19 17:29 Last Admin: 03/03/19 17:53 Dose: 25 mg Escitalopram Oxalate (Lexapro) 20 mg PO DAILY [facility] Last Admin: 03/04/19 10:12 Dose: Not Given Sodium Chloride (Normal Saline) 1,000 mls @ 999 mls/hr IV STAT ONE Stop: 03/03/19 04:49 Last Admin: 03/03/19 04:00 Dose: 999 mls/hr Lactated Ringer's (Ringers, Lactated) 1,000 mls @ 125 mls/hr IV ASDIRECTED [facility] Last Admin: 03/03/19 08:28 Dose: 125 mls/hr Potassium Chloride 40 meq/ (Premix) 100 mls @ 25 mls/hr IV ONETIME ONE Stop: 03/03/19 15:55 Last Admin: 03/03/19 14:09 Dose: 25 mls/hr Acetylcysteine 3,000 mg/ (Dextrose/Water) 515 mls @ 85.833 mls/hr IV 03/03/19@ 1330 [facility] Stop: 03/03/19 19:29 Last Admin: 03/03/19 18:51 Dose: 85.833 mls/hr Acetylcysteine 6,000 mg/ (Dextrose/Water) 1,030 mls @ 64.375 mls/hr IV 03/03/19 @1730 [facility] Stop: 03/04/19 09:29 Last Admin: 03/04/19 01:38 Dose: 64.375 mls/hr Acetylcysteine 9,000 mg/ (Dextrose/Water) 245 mls @ 245 mls/hr IV 03/03/19@ 1230 [facility] Stop: 03/03/19 16:00 Last Admin: 03/03/19 15:23 Dose: 245 mls/hr Ketorolac Tromethamine (Toradol) 30 mg IVPUSH ONETIME ONE Stop: 03/03/19 05:44 Last Admin: 03/03/19 05:48 Dose: 30 mg Ketorolac Tromethamine (Toradol) 15 mg IVPUSH Q6H PRN PRN Reason: Pain (moderate 4-6) Stop: 03/08/19 09:27 Non-Formulary Medication (Escitalopram Oxalate) 25 mg PO DAILY [facility] Last Admin: 03/04/19 03:10 Dose: Not Given Ondansetron HCl (Zofran) 4 mg IVPUSH ONETIME ONE Stop: 03/03/19 03:51 Last Admin: 03/03/19 04:01 Dose: 4 mg Ondansetron HCl (Zofran) 4 mg IVPUSH Q6H PRN PRN Reason: Nausea/Vomiting Lisdexamfetamine Dimesylate [Vyvanse] 50 Mg 0 each PO DAILY [facility] Last Admin: 03/04/19 09:52 Dose: 50 each - Free Text/Narrative Note: I have seen and examined the patient with the resident. I have discussed findings and treatment plan with the resident. I agree with the assessment and plan outlined in the following note.
== END 2019-03-04 15:27 | disposition home or self-care (01) ==
LOC: MW.ED 03:46 → MERGE 08:18 → MW.OB 08:18 → MW.MS 17:41
PROVIDERS: ADMIT Surgery; ATTEND Internal Medicine
DX: K83.8 Other specified diseases of biliary tract (principal); E80.6 Other disorders of bilirubin metabolism; R94.5 Abnormal results of liver function studies; F41.9 Anxiety disorder, unspecified; F32.9 Major depressive disorder, single episode, unspecified; D64.9 Anemia, unspecified; J45.909 Unspecified asthma, uncomplicated; Z87.19 Personal history of other diseases of the digestive system
CPT/HCPCS: 36415; 74022; 74022-26; 74181; 74181-26; 76705; 76705-26; 80053; 80074; 81001; 83690; 84703; 85025; 85610; 87086; 96361; 96374; 96375; 96376; 99284; 99285-25; A9270-GY; G0378; G0480; J0132; J1200; J1885; J2405; J3480; J7030; J7060; J7120; J7620-GY

== ENCOUNTER 2020-02-19 17:53 | Emergency (ER) | payer MEDICAID ==
[2020-02-19 18:07] VITALS: BP 129/63; PULSE 58
[2020-02-19] MEDS ORDERED: Metoclopramide 10 MG/2 ML SDV IVPUSH ONE (18:14)
[2020-02-19] MEDS ORDERED: Sodium Chloride 0.9% 1,000 ML IV ONE (18:14)
--- NOTE | 2020-02-19 18:18 | EDM.PDOC ---
ED HPI GENERAL MEDICAL PROBLEM - General Chief Complaint: Gastrointestinal Problem Stated Complaint: VOMITING Time Seen by Provider: 02/19/20 18:04 Source of Information: Reports: Patient History Limitations: Reports: No Limitations - History of Present Illness INITIAL COMMENTS - FREE TEXT/NARRATIVE: Patient is a 24-year-old female who presents today for dizziness nausea vomiti ng. Patient states symptoms started early this morning. The dizziness is made worse with turning her head to the right. Patient denies hitting her head or have any injuries. Date patient denies any other neurologic complaints no altered mental status change in vision or numbness weakness in her extremities. Patient is not be able to tolerate anything by mouth since the vomiting started. Patient denies any abdominal pain. - Related Data Allergies Allergy/AdvReac Type Severity Reaction Status Date / Time No Known Allergies Allergy Verified 02/19/20 18:01 Home Meds: Home Meds Lisdexamfetamine Dimesylate [Vyvanse] 60 mg PO DAILY 12/26/18 [History] Meclizine [Antivert] 25 mg PO TID PRN 7 Days #21 tab 02/19/20 [Rx] Vortioxetine Hydrobromide [Trintellix] 20 mg PO DAILY 02/19/20 [History] Past Medical History HEENT History: Reports: Other (See Below) Other HEENT History: wears glasses Cardiovascular History: Reports: None Respiratory History: Reports: Asthma Gastrointestinal History: Reports: None Genitourinary History: Reports: None PRESIDENT History: Reports: None Musculoskeletal History: Reports: None Neurological History: Reports: None Psychiatric History: Reports: Anxiety, Depression Endocrine/Metabolic History: Reports: None Hematologic History: Reports: Anemia Immunologic History: Reports: None Oncologic (Cancer) History: Reports: None Dermatologic History: Reports: None - Infectious Disease History Infectious Disease History: Reports: Chicken Pox - Past Surgical History Head Surgeries/Procedures: Reports: None HEENT Surgical History: Reports: Naso-Sinus Surgery, Tonsillectomy Social & Family History - Family History Family Medical History: No Pertinent Family History - Tobacco Use Tobacco Use Status *Q: Never Tobacco User - Caffeine Use Caffeine Use: Reports: None - Recreational Drug Use Recreational Drug Use: No ED ROS GENERAL - Review of Systems Review Of Systems: See Below Constitutional: Reports: No Symptoms HEENT: Reports: No Symptoms Respiratory: Reports: No Symptoms Cardiovascular: Reports: No Symptoms Endocrine: Reports: No Symptoms GI/Abdominal: Reports: Nausea, Vomiting : Reports: No Symptoms Musculoskeletal: Reports: No Symptoms Skin: Reports: No Symptoms Neurological: Reports: Dizziness Psychiatric: Reports: No Symptoms Hematologic/Lymphatic: Reports: No Symptoms Immunologic: Reports: No Symptoms ED EXAM, GENERAL - Physical Exam Exam: See Below Exam Limited By: No Limitations General Appearance: Alert, No Apparent Distress Eye Exam: Bilateral Eye: EOMI, PERRL Head: Atraumatic Respiratory/Chest: No Respiratory Distress, Lungs Clear, Normal Breath Sounds Cardiovascular: Normal Peripheral Pulses, Regular Rate, Rhythm GI/Abdominal: Normal Bowel Sounds, Soft, Non-Tender Back Exam: Full Range of Motion Extremities: Normal Range of Motion Neurological: Alert, Oriented, CN II-XII Intact, Normal Cognition, Normal Gait Course - Vital Signs Last Recorded V/S: Last Vital Signs Temp 97.9 F 02/19/20 18:05 Pulse 58 L 02/19/20 18:05 Resp 16 02/19/20 18:05 BP 129/63 02/19/20 18:05 Pulse Ox 100 02/19/20 18:05 - Orders/Labs/Meds Orders: Active Orders 24 hr Category Date Time Status HCG QUALITATIVE,URINE [URCHEM] Stat Lab 02/19/20 18:14 Ordered Meclizine [Antivert] Med 02/19/20 18:52 Ordered 25 mg PO TID PRN Sodium Chloride 0.9% [Normal Saline] 1,000 ml Med 02/19/20 18:14 Active IV .BOLUS Medication Orders Sodium Chloride (Normal Saline) 1,000 mls @ 999 mls/hr IV .BOLUS ONE Stop: 02/19/20 19:14 Last Admin: 02/19/20 18:20 Dose: 999 mls/hr Documented by: ALEX Meclizine HCl (Antivert) 25 mg PO TID PRN PRN Reason: Dizziness Labs: Laboratory Tests 02/19/20 02/19/20 Range/Units 18:15 18:15 WBC 6.84 (4.0-11.0) K/uL RBC 4.84 (4.30-5.90) M/uL Hgb 11.6 L (12.0-16.0) g/dL Hct 37.9 (36.0-46.0) % MCV 78.3 L (80.0-98.0) fL MCH 24.0 L (27.0-32.0) pg MCHC 30.6 L (31.0-37.0) g/dL RDW Std Deviation 50.0 (28.0-62.0) fl RDW Coeff of Karolina 18 H (11.0-15.0) % Plt Count 286 (150-400) K/uL MPV 9.90 (7.40-12.00) fL Neut % (Auto) 80.1 H (48.0-80.0) % Lymph % (Auto) 14.8 L (16.0-40.0) % [place] % (Auto) 3.8 (0.0-15.0) % Eos % (Auto) 0.7 (0.0-7.0) % Baso % (Auto) 0.6 (0.0-1.5) % Neut # (Auto) 5.5 (1.4-5.7) K/uL Lymph # (Auto) 1.0 (0.6-2.4) K/uL [place] # (Auto) 0.3 (0.0-0.8) K/uL Eos # (Auto) 0.1 (0.0-0.7) K/uL Baso # (Auto) 0.0 (0.0-0.1) K/uL Nucleated RBC % 0.0 /100WBC Nucleated RBCs # 0 K/uL Sodium 141 (136-145) mmol/L Potassium 3.7 (3.5-5.1) mmol/L Chloride 104 (98-107) mmol/L Carbon Dioxide 25.7 (21.0-32.0) mmol/L BUN 20 H (7.0-18.0) mg/dL Creatinine 0.7 (0.6-1.0) mg/dL Est Cr Clr Drug Dosing 109.59 mL/min Estimated GFR (MDRD) > 60.0 ml/min Glucose 95 (74-106) mg/dL Calcium 9.3 (8.5-10.1) mg/dL Total Bilirubin 0.6 (0.2-1.0) mg/dL AST 20 (15-37) IU/L ALT 25 (14-63) IU/L Alkaline Phosphatase 59 (46-116) U/L Total Protein 8.0 (6.4-8.2) g/dL Albumin 4.4 (3.4-5.0) g/dL Globulin 3.6 (2.6-4.0) g/dL Albumin/Globulin Ratio 1.2 (0.9-1.6) Meds: Medications Generic Name Dose Route Start Last Admin Trade Name Freq PRN Reason Stop Dose Admin Sodium Chloride 1,000 mls @ 999 mls/hr 02/19/20 18:14 02/19/20 18:20 Normal Saline IV 02/19/20 19:14 999 mls/hr .BOLUS ONE Administration Meclizine HCl 25 mg 02/19/20 18:52 Antivert PO TID PRN Dizziness Discontinued Medications Generic Name Dose Route Start Last Admin Trade Name Freq PRN Reason Stop Dose Admin Metoclopramide HCl 10 mg 02/19/20 18:14 02/19/20 18:20 Reglan IVPUSH 02/19/20 18:15 10 mg ONETIME ONE Administration - Re-Assessments/Exams Free Text/Narrative Re-Assessment/Exam: 02/19/20 18:52 Symptoms resolved with Reglan. Patient able tolerate p.o. and looks a lot better. Patient will be discharged home with meclizine. Departure - Departure Time of Disposition: 18:54 Disposition: Home, Self-Care 01 Condition: Good Clinical Impression: Vertigo - Discharge Information *PRESCRIPTION DRUG MONITORING PROGRAM REVIEWED*: Not Applicable *COPY OF PRESCRIPTION DRUG MONITORING REPORT IN PATIENT CY: Not Applicable Prescriptions: Meclizine [Antivert] 25 mg PO TID PRN 7 Days #21 tab PRN Reason: Dizziness Instructions: Dizziness, [id number] Referrals: PCP,None [Primary Care Provider] - Forms: ED Department Discharge Additional Instructions: The following information is given to patients seen in the emergency department who are being discharged to home. This information is to outline your options for follow-up care. We provide all patients seen in our emergency department with a follow-up referral. The need for follow-up, as well as the timing and circumstances, are variable depending upon the specifics of your emergency department visit. If you don't have a primary care physician on staff, we will provide you with a referral. We always advise you to contact your personal physician following an emergency department visit to inform them of the circumstance of the visit and for follow-up with them and/or the need for any referrals to a consulting specialist. The emergency department will also refer you to a specialist when appropriate. This referral assures that you have the opportunity for follow-up care with a specialist. All of these measure are taken in an effort to provide you with optimal care, which includes your follow-up. Under all circumstances we always encourage you to contact your private physician who remains a resource for coordinating your care. When calling for follow-up care, please make the office aware that this follow-up is from your recent emergency room visit. If for any reason you are refused follow-up, please contact the [facility] Emergency Department at and asked to speak to the emergency department charge nurse. Please follow up with your primary care physician. If you do not have a primary care physician, see below: [facility] [address] [place] [id number] [facility] [address] [place] [id number] Up to primary care physician as needed. If you develop any more dizziness and can walk please return to the ED if you develop any numbness weakness in your body or change in speech or vision please return to the emergency department please. Take your medication only when you are dizzy. Sepsis Event Note (ED) - Evaluation Sepsis Screening Result: No Definite Risk - Focused Exam Vital Signs: Vital Signs Temp Pulse Resp BP Pulse Ox 02/19/20 18:05 97.9 F 58 L 16 129/63 100 - My Orders Last 24 Hours: My Active Orders 02/19/20 18:14 HCG QUALITATIVE,URINE [URCHEM] Stat Sodium Chloride 0.9% [Normal Saline] 1,000 ml IV .BOLUS 02/19/20 18:52 Meclizine [Antivert] 25 mg PO TID PRN - Assessment/Plan Last 24 Hours: My Active Orders 02/19/20 18:14 HCG QUALITATIVE,URINE [URCHEM] Stat Sodium Chloride 0.9% [Normal Saline] 1,000 ml IV .BOLUS 02/19/20 18:52 Meclizine [Antivert] 25 mg PO TID PRN Plan: Patient is a 24-year-old female who presents today for dizziness and nausea vomiting. Patient other symptoms on examination. Unclear as peripheral vertigo. Patient will be given IV fluids Reglan and reassess.
[2020-02-19 18:39] LABS: BLOOD UREA NITROGEN,BUN 20 mg/dL (7.0-18.0); CARBON DIOXIDE,CO2 25.7 mmol/L (21.0-32.0); CHLORIDE,CL 104 mmol/L (98-107); GLUCOSE RANDOM 95 mg/dL (74-106); POTASSIUM,K 3.7 mmol/L (3.5-5.1); SODIUM,NA 141 mmol/L (136-145)
[2020-02-19] MEDS ORDERED: Meclizine 25 MG Tab PO PRN (18:52)
== END 2020-02-19 19:34 | disposition left against medical advice (07) ==
LOC: MW.ED 17:53
DX: R42 Dizziness and giddiness (principal); J45.909 Unspecified asthma, uncomplicated; F32.9 Major depressive disorder, single episode, unspecified; Z79.899 Other long term (current) drug therapy
CPT/HCPCS: 36415; 80053; 85025; 96374; 99284; J2765; J7030; 99283

== ENCOUNTER 2024-04-11 02:12 | Emergency (ER) | payer SELFPAY ==
[2024-04-11 03:00] LABS: BASOPHILS ABSOLUTE AUTO 0.06 K/uL (0.00-0.20); BASOPHILS PERCENT AUTO 0.4 % (0.0-1.0); EOSINOPHILS ABSOLUTE AUTO 0.38 K/uL (0.00-0.45); EOSINOPHILS PERCENT AUTO 2.6 % (0.0-6.0); HEMOGLOBIN 11.6 g/dL (12.0-16.0); IMMATURE GRAN ABSOLUTE AUTO 0.05 K/uL (0.00-0.05); IMMATURE GRAN PERCENT AUTO 0.3 % (0.0-0.4); LYMPHOCYTES ABSOLUTE AUTO 1.92 K/uL (1.00-4.80); MEAN CORPUSCULAR HGB CONC 34.1 g/dL (32.0-36.0); MEAN PLATELET VOLUME 8.9 fL (9.4-12.3); MONOCYTES ABSOLUTE AUTO 0.88 K/uL (0.00-0.80); NEUTROPHILS ABSOLUTE AUTO 11.49 K/uL (1.80-7.70); NEUTROPHILS PERCENT AUTO 77.7 % (41.0-71.0); PLATELET COUNT,PLT 300 K/uL (150-400); WHITE BLOOD CELL COUNT,WBC 14.78 K/uL (3.9-11.3)
[2024-04-11 03:38] LABS: A/G RATIO 1.3 (0.9-1.6); ACETAMINOPHEN <2.0 ug/mL; ALANINE AMINOTRANSFERASE,ALT 32 IU/L (14-63); ALBUMIN 3.8 g/dL (3.4-5.0); ALKALINE PHOSPHATASE 54 U/L (46-116); ASPARTATE AMNIOTRANSFERASE,AST 23 IU/L (15-37); BILIRUBIN TOTAL 0.4 mg/dL (0.2-1.0); BLOOD UREA NITROGEN,BUN 7 mg/dL (7.0-18.0); CALCIUM 8.3 mg/dL (8.5-10.1); CARBON DIOXIDE,CO2 25.6 mmol/L (21.0-32.0); CHLORIDE,CL 101 mmol/L (98-107); CREATININE 0.7 mg/dL (0.6-1.0); EST CRCL DRUG DOSING (CG) 105.74 mL/min; GLUCOSE RANDOM 94 mg/dL (74-106); POTASSIUM,K 3.3 mmol/L (3.5-5.1); PROTEIN TOTAL,TP 6.7 g/dL (6.4-8.2); SALICYLATE 2.9 mg/dL (0.0-20.0); SODIUM,NA 138 mmol/L (136-145); TSH ULTRASENSITIVE 3.63 uIU/mL (0.36-3.74)
[2024-04-11 03:39] LABS: ESTIMATED GFR 119 mL/min (>60); ETHANOL BLOOD MEDICAL < 3.0 mg/dL
[2024-04-11 04:18] LABS: APPEARANCE,URINE CLEAR; BILIRUBIN,URINE NEGATIVE (NEGATIVE); COLOR,URINE YELLOW; GLUCOSE,URINE NEGATIVE (NEGATIVE); KETONES,URINE TRACE mg/dL (NEGATIVE); LEUKOCYTE ESTERASE,URINE NEGATIVE (NEGATIVE); NITRITE,URINE NEGATIVE (NEGATIVE); OCCULT BLOOD,URINE NEGATIVE (NEGATIVE); PROTEIN,URINE NEGATIVE (NEGATIVE); UROBILINOGEN,URINE 0.2 EU/dL (<2.0)
[2024-04-11 04:28] LABS: AMPHETAMINES SCREEN, URINE NEGATIVE (CUTOFF=500); BARBITURATE SCREEN,URINE NEGATIVE (CUTOFF=200); BENZODIAZEPINES SCREEN,URINE PRESUMPTIVE POSITIVE (CUTOFF=150); BUPRENORPHINE SCREEN,URINE NEGATIVE (CUTOFF=10); METHADONE SCREEN, URINE NEGATIVE (CUTOFF=200); METHAMPHETAMINES SCREEN, URINE NEGATIVE (CUTOFF=500); OXYCODONE SCREEN,URINE NEGATIVE (CUT0FF=100); PCP SCREEN,URINE NEGATIVE (CUTOFF=25); THC SCREEN,URINE 20 NG/ML NEGATIVE (CUTOFF=50)
[2024-04-11 08:00] VITALS: BP 114/66; PULSE 89
== END 2024-04-11 08:59 ==
LOC: MW.ED 02:12
DX: T43.222A Poisoning by selective serotonin reuptake inhibitors, intentional self-harm, initial encounter (principal); Z79.899 Other long term (current) drug therapy
CPT/HCPCS: 36415; 80053; 80143; 80179; 80305-QW; 80307; 81003; 81025; 84443; 85025; 93005; 93010; 99284; 99285

== ENCOUNTER 2024-05-20 16:34 | Emergency (ER) | payer SELFPAY ==
[2024-05-20 17:26] LABS: BASOPHILS ABSOLUTE AUTO 0.05 K/uL (0.00-0.20); BASOPHILS PERCENT AUTO 0.8 % (0.0-1.0); EOSINOPHILS ABSOLUTE AUTO 0.16 K/uL (0.00-0.45); EOSINOPHILS PERCENT AUTO 2.7 % (0.0-6.0); HEMATOCRIT 36.9 % (37.0-47.0); HEMOGLOBIN 12.1 g/dL (12.0-16.0); IMMATURE GRAN ABSOLUTE AUTO 0.01 K/uL (0.00-0.05); IMMATURE GRAN PERCENT AUTO 0.2 % (0.0-0.4); LYMPHOCYTES ABSOLUTE AUTO 1.55 K/uL (1.00-4.80); LYMPHOCYTES PERCENT AUTO 26.3 % (24.0-44.0); MEAN CORPUSCULAR HEMOGLOBIN 28.7 pg (28.0-32.0); MEAN CORPUSCULAR HGB CONC 32.8 g/dL (32.0-36.0); MEAN CORPUSCULAR VOLUME 87.4 fL (83.0-99.0); MEAN PLATELET VOLUME 9.9 fL (9.4-12.3); MONOCYTES ABSOLUTE AUTO 0.59 K/uL (0.00-0.80); NEUTROPHILS ABSOLUTE AUTO 3.53 K/uL (1.80-7.70); PLATELET COUNT,PLT 294 K/uL (150-400); RED BLOOD CELL COUNT 4.22 M/uL (4.10-5.30); WHITE BLOOD CELL COUNT,WBC 5.89 K/uL (3.9-11.3)
[2024-05-20 18:00] LABS: A/G RATIO 1.1 (0.9-1.6); ACETAMINOPHEN <2.0 ug/mL; ALANINE AMINOTRANSFERASE,ALT 37 IU/L (14-63); ALBUMIN 3.9 g/dL (3.4-5.0); ALKALINE PHOSPHATASE 56 U/L (46-116); ASPARTATE AMNIOTRANSFERASE,AST 20 IU/L (15-37); BILIRUBIN TOTAL 0.2 mg/dL (0.2-1.0); BLOOD UREA NITROGEN,BUN 9 mg/dL (7.0-18.0); CALCIUM 8.7 mg/dL (8.5-10.1); CARBON DIOXIDE,CO2 26.9 mmol/L (21.0-32.0); CHLORIDE,CL 104 mmol/L (98-107); CREATININE 0.9 mg/dL (0.6-1.0); EST CRCL DRUG DOSING (CG) 82.25 mL/min; GLUCOSE RANDOM 84 mg/dL (74-106); PROTEIN TOTAL,TP 7.3 g/dL (6.4-8.2); SALICYLATE 0.8 mg/dL (0.0-20.0); SODIUM,NA 140 mmol/L (136-145)
[2024-05-20 18:02] LABS: ESTIMATED GFR 88 mL/min (>60)
[2024-05-20] MEDS: Acetaminophen 500 MG Tab PO ONE (19:28)
[2024-05-20 20:16] LABS: AMPHETAMINES SCREEN, URINE PRESUMPTIVE POSITIVE (CUTOFF=500); BARBITURATE SCREEN,URINE NEGATIVE (CUTOFF=200); BENZODIAZEPINES SCREEN,URINE NEGATIVE (CUTOFF=150); BUPRENORPHINE SCREEN,URINE NEGATIVE (CUTOFF=10); METHADONE SCREEN, URINE NEGATIVE (CUTOFF=200); METHAMPHETAMINES SCREEN, URINE NEGATIVE (CUTOFF=500); OXYCODONE SCREEN,URINE NEGATIVE (CUT0FF=100); PCP SCREEN,URINE NEGATIVE (CUTOFF=25); THC SCREEN,URINE 20 NG/ML NEGATIVE (CUTOFF=50)
[2024-05-21 07:54] VITALS: BP 124/81; PULSE 61
[2024-05-21] MEDS: diphenhydrAMINE 25 MG Cap PO ONE (08:27)
== END 2024-05-21 09:39 ==
LOC: MW.ED 16:34
DX: R45.851 Suicidal ideations (principal); J45.909 Unspecified asthma, uncomplicated; Z79.899 Other long term (current) drug therapy; Z75.8 Other problems related to medical facilities and other health care
CPT/HCPCS: 36415; 80053; 80143; 80179; 80305; 85025; 93005; 99285; A9270; 93010; 99284